=== PATIENT | female | born 1995 | race Two or more races ===

== ENCOUNTER 2018-01-15 16:30 | Emergency (ER) | payer OTHER ==
--- NOTE | 2018-01-15 16:38 | ER Document Report ---
ED Medical Screen (RME) - General Stated Complaint: HAND LACERATION Time Seen by Provider: 01/15/18 16:37 - HPI Notes: 01/15/18 16:37 Auditory bleed a left hand take trauma room #1
[2018-01-15] MEDS ORDERED: LIDOCAINE 1% INJ-PF (10 MG/ML) 30 ML SDV ONE (16:40)
[2018-01-15] MEDS ORDERED: LIDOCAINE 1% INJ-PF (10 MG/ML) 30 ML SDV INJ ONE (16:54)
--- NOTE | 2018-01-15 16:54 | ER Document Report ---
ED Wound - General Chief Complaint: Laceration Stated Complaint: HAND LACERATION Time Seen by Provider: 01/15/18 16:37 Notes: 23-year-old female patient actually stabbed herself in the left thenar eminence while using a knife to clean some wax out of a scented candle container. Significant amount of bleeding. Pulsatile in nature. Located on the left hand. No other injuries. Unintentional. Up-to-date on her tetanus shot. TRAVEL OUTSIDE OF THE [place] IN LAST 30 DAYS: No - HPI Patient complains to provider of: Laceration, Puncture wound, Stab wound - Related Data Allergies/Adverse Reactions: No Known Allergies Allergy (Verified 01/15/18 17:02) Past Medical History - General Information source: Patient - Social History Smoking Status: Never Smoker Chew tobacco use (# tins/day): No Frequency of alcohol use: None Drug Abuse: None Lives with: Spouse/Significant other Family History: Reviewed & Not Pertinent - Medical History Medical History: Negative Review of Systems - Review of Systems Constitutional: No symptoms reported EENT: No symptoms reported Cardiovascular: No symptoms reported Respiratory: No symptoms reported Musculoskeletal: See HPI, Other - Puncture wound left hand. Skin: See HPI, Other - Laceration left hand puncture wound left hand Hematologic/Lymphatic: No symptoms reported Neurological/Psychological: No symptoms reported Physical Exam - Vital signs Vitals: Temp Pulse Resp BP Pulse Ox 98.1 F 117 H 18 120/58 L 99 01/15/18 16:42 01/15/18 16:42 01/15/18 16:42 01/15/18 16:42 01/15/18 16:42 Interpretation: Normal - General General appearance: Appears well, Alert - Respiratory Respiratory status: No respiratory distress Chest status: Nontender Breath sounds: Normal Chest palpation: Normal - Cardiovascular Rhythm: Regular Heart sounds: Normal auscultation Murmur: No - Extremities General upper extremity: Tender, Other - has a 1 cm puncture thenar eminence of the left hand. Sensation is intact 2 point discrimination intact. Some difficulty with flexion of the left thumb. To oppose the with thumb and pinky. Capillary refill is intact to the left upper extremity and thumb. General lower extremity: Normal inspection, Nontender, Normal color, Normal ROM , Normal temperature, Normal weight bearing. No: Kel's sign - Neurological Neuro grossly intact: Yes Cognition: Normal Orientation: AAOx4 Sherry Coma Scale Eye Opening: Spontaneous [place] Coma Scale Verbal: Oriented [place] Coma Scale Motor: Obeys Commands [place] Coma Scale Total: 15 Speech: Normal Motor strength normal: LUE, RUE, LLE, RLE Sensory: Normal - Skin Skin Temperature: Warm Skin Moisture: Dry Skin Color: Normal, Other - 1 cm puncture wound to the left thenar eminence. Course - Re-evaluation Re-evalutation: 01/15/18 17:33 Laceration was repaired. Consulted with orthopedic surgeon, Dr. Hicks who will follow up with her in the clinic tomorrow if she can make it. Antibiotic given. Laceration repair. No active bleeding at this time. Comfortable at this time discharging. - Vital Signs Vital signs: Temp Pulse Resp BP Pulse Ox 98.1 F 117 H 18 120/58 L 99 01/15/18 16:42 01/15/18 16:42 01/15/18 16:42 01/15/18 16:42 01/15/18 16:42 Discharge - Discharge Clinical Impression: Puncture wound of left hand with tendon involvement Qualifiers: Encounter type: initial encounter Qualified Code(s): S61.432A - Puncture wound without foreign body of left hand, initial encounter; S66.992A - Other injury of unspecified muscle, fascia and tendon at wrist and hand level, left hand, initial encounter; S66.992A - Other injury of unspecified muscle, fascia and tendon at wrist and hand level, left hand, initial encounter Condition: Good Disposition: HOME, SELF-CARE Instructions: Laceration Care ([facility]), Prophylactic Antibiotic ([facility]) Additional Instructions: Acute hand cleaned and dry. Follow-up with orthopedic surgery tomorrow afternoon. Call their office in the morning and state that the ER doctor spoke with Dr. Hicks in the ER yesterday. He will try to see you tomorrow for repeat evaluation. If bleeding returns, worsening pain, other issues please return immediately. Because you are you should not take anything significant for pain. Tylenol only for pain. Prescriptions: Cephalexin Monohydrate [Keflex 500 mg Capsule] 500 mg PO Q6H 5 Days capsule Referrals: ELIZABETH HICKS MD [ACTIVE STAFF] - 01/16/18 8:00 am
[2018-01-15] MEDS ORDERED: CEPHALEXIN 500 MG CAPSULE PO ONE (17:31)
[2018-01-15] MEDS ORDERED: NORMAL SALINE 1000 ML 1,000 ML IV ONE ×2 (18:05→18:55)
[2018-01-15 18:13] LABS: ABSOLUTE BASOPHILS # (AUTO) 0.1 10^3/uL (0.0-0.2); ABSOLUTE EOSINOPHILS # (AUTO) 0.1 10^3/uL (0.0-0.6); ABSOLUTE LYMPHOCYTES (AUTO) 2.9 10^3/uL (0.5-4.7); ABSOLUTE MONOCYTES (AUTO) 0.9 10^3/uL (0.1-1.4); ABSOLUTE NEUT (AUTO) 14.1 10^3/uL (1.7-8.2); BASOPHILS % (AUTO) 0.4 % (0-2); EOSINOPHILS % (AUTO) 0.3 % (0-6); HEMATOCRIT 34.5 % (36.0-47.0); HEMOGLOBIN 11.9 g/dL (12.0-15.5); LYMPHOCYTES % (AUTO) 16.2 % (13-45); MEAN CORPUSCULAR HEMOGLOBIN 31.2 pg (27.0-33.4); MEAN CORPUSCULAR HGB CONC 34.6 g/dL (32.0-36.0); MEAN CORPUSCULAR VOLUME 90 fl (80-97); MONOCYTES % (AUTO) 5.1 % (3-13); PLATELET COUNT 287 10^3/uL (150-450); RED BLOOD COUNT 3.82 10^6/uL (3.72-5.28); RED CELL DISTRIBUTION WIDTH 12.8 % (11.5-14.0); TOTAL CELLS COUNTED % (AUTO) 100 %; WHITE BLOOD COUNT 18.1 10^3/uL (4.0-10.5)
[2018-01-15 18:31] LABS: ALANINE AMINOTRANSFERASE 24 U/L (9-52); ALBUMIN 3.7 g/dL (3.5-5.0); ALKALINE PHOSPHATASE 72 U/L (38-126); ANION GAP 12 (5-19); ASPARTATE AMINO TRANSFERASE 12 U/L (14-36); BILIRUBIN,DIRECT 0.2 mg/dL (0.0-0.4); BILIRUBIN,TOTAL 0.2 mg/dL (0.2-1.3); BLOOD UREA NITROGEN 11 mg/dL (7-20); CALCIUM 9.6 mg/dL (8.4-10.2); CARBON DIOXIDE 18 mmol/L (22-30); CHLORIDE 106 mmol/L (98-107); GLUCOSE 104 mg/dL (75-110); POTASSIUM 4.2 mmol/L (3.6-5.0); TOTAL PROTEIN 6.6 g/dL (6.3-8.2)
[2018-01-15] MEDS ORDERED: ONDANSETRON 4 MG TAB.RAPDIS PO PRN (19:24)
--- NOTE | 2018-01-15 19:29 | EKG REPORT ---
SEVERITY:- BORDERLINE ECG - SINUS RHYTHM LOW VOLTAGE THROUGHOUT : Confirmed by: Jean Santana MD 15-Jan-2018 19:28:58
[2018-01-15 19:47] VITALS: BP 108/66
== END 2018-01-15 19:47 | disposition home or self-care (01) ==
LOC: ER 16:30
PROC: 0HQGXZZ Repair Left Hand Skin, External Approach (ICD-10-PCS; principal; 2018-01-15)
DX: S61.432A Puncture wound without foreign body of left hand, initial encounter (principal); S66.992A Other injury of unspecified muscle, fascia and tendon at wrist and hand level, left hand, initial encounter; R55 Syncope and collapse; W26.0XXA Contact with knife, initial encounter
CPT/HCPCS: 93005; 99283; 96360; 36415; 85025; 80053; 93010; 12001; J3490; J7030